=== PATIENT | male | born 1975 | race Two or more races ===

== ENCOUNTER → 2025-05-17 | Day surgery (SDC) | payer BC, OTHER ==
[2025-05-15 10:24] LABS: MEAN PLATELET VOLUME 7.3 FL (7.4-10.4); PRE OP HEMATOCRIT 42.9 % (42.0-52.0); PRE OP HEMOGLOBIN 14.7 g/dL (14.0-17.9); PRE OP PLATELET COUNT 245 X10'3 (140-440); PRE OP WHITE BLOOD COUNT 4.4 10'3 (4.8-10.8); RED CELL DISTRIBUTION WIDTH 13.5 % (11.5-14.5)
[2025-05-15 10:49] LABS: CREATININE 0.98 MG/DL (0.60-1.10); PRE OP ALT 24 U/L (30-65); PRE OP ANION GAP 8 (8-16); PRE OP AST 19 U/L (10-37); PRE OP BILIRUB, TOTAL 0.5 MG/DL (0.0-1.0); PRE OP GLUCOSE 98 MG/DL (70-104); PRE OP POTASSIUM 3.5 MMOL/L (3.4-5.1); PRE OP SODIUM 143 MMOL/L (135-145); TOTAL CARBON DIOXIDE 25.8 MMOL/L (24-32); eGFR 81 ML/MIN
--- NOTE | 2025-05-15 11:14 | ELECTROCARDIOGRAPH REPORT ---
[facility] Test Date: 2025-05-15 Test Time: 11:09:36 Pat Name: TWILA HERNANDEZ Department: [facility]-PRE-OP Patient ID: [facility]-[id number] Room: Gender: M C[employer]: : 1975 Requested By: GEORGE FINLEY Order Number: [id number] Reading MD: Dr. RUSSELL Singh Measurements Intervals [place] Rate: 59 P: 0 VT: 123 QRS: -58 QRSD: 100 T: 20 QT: 407 QTc: 404 Interpretive Statements Sinus bradycardia Left anterior fascicular block RSR' in V1 or V2, probably normal variant Electronically Signed On 05-16-2025 16:35:[address] RUSSELL Singh Please click the below link to view image of tracing.
[~2025-05-17] VITALS: Ht 170.2 cm; Wt 70.3 kg
[2025-05-17] VITALS (14 sets, daily range): BP systolic 114–134; BP diastolic 77–92; PULSE 53–62; RESP 10–16; TEMP 97.7; O2SAT 96–100
[~2025-05-17] MED LIST: ATOR20TA66 PO; BUPIVAcaine/PF 2.5 mg/ml (0.25%) 30ml vial ONE; HYDROmorphone/PF 0.2 MG/ML SYRINGE IV PRN; LIDOcaine 1% 30ml preserv. free vial ONE; LIDOcaine 2% (20mg/ml) 5ml vial ONE; acetaminophen 1,000mg/100ml IV 100 ML IV PRN; bacitracin 15gm ointment TP ONE; dexamethasone sod phosphate 4mg/ml inj. ONE; fentaNYL/PF 50MCG/1 ML 2ML syringe ONE; hydrALAZINE 20mg/ml inj. IV PRN; labetalol 20mg/4ml (5mg/ml) syringe IV PRN; midazolam 1 mg/ML 2ml injection ONE; morphine 4 MG/ML inj SYRINge IV PRN; ondansetron/PF 4mg/2ml inj IV PRN; ondansetron/PF 4mg/2ml inj ONE; propofol inj 20 ML IV ONE; ringers solution, lacted 1,000 ML IV SCH
[2025-05-17] MEDS: clindamycin-Cleocin 900mg/D5W 50 ML IV ONE (07:04)
--- NOTE | 2025-05-17 08:57 | HISTORY AND PHYSICAL ---
History & Physical Providers to CC ~ History of Present Illness Reason for Admit\Complaint: Umbilical hernia History of Present Illness Interval history and physical exam Patient here today for elective repair of an umbilical hernia He was seen in the office greater than 30 days ago He denies any change in his past medical history (please see previous history and physical exam for all pertinent details) He is scheduled for an umbilical hernia repair with mesh Allergies: Coded Allergies: Penicillins (Verified Allergy, Unknown, UNKNOWN, 05/16/25) Home Medications Home Medications Active Reported Atorvastatin Calcium 20 Mg Tablet 1 Tab PO DAILY Exam Vitals: Vital Signs Date Time Temp Pulse Resp B/P (MAP) Pulse Ox O2 Delivery O2 Flow Rate FiO2 05/17/25 07:17 53 15 100 05/17/25 07:14 Room Air General: 49-year-old male no acute distress Chest: Lungs clear to auscultation bilaterally Cardiovascular: Regular rate and rhythm without murmurs Abdomen: Abdomen soft and distended Umbilical hernia, reducible with no overlying skin changes Diagnostic Data Last Recorded Lab Results: 05/15/25 1018 05/15/25 1018 Problems: (1) Umbilical hernia Assessment & Plan: The risks, benefits, and alternatives to an umbilical hernia repair possible mesh were discussed with the patient. Risks include, but are not limited to, bleeding, infection, injury to intra-abdominal structures, hernia recurrence and chronic postoperative pain. Patient verbalized understanding and wishes to proceed with surgery. We will do so today as scheduled GEORGE FINLEY MD May 17, 2025 08:57
[2025-05-17] MEDS: BUPIVAcaine/PF 2.5 mg/ml (0.25%) 30ml vial IJ ONE (09:30)
[2025-05-17] MEDS: ondansetron/PF 4mg/2ml inj IV PRN (10:19)
--- NOTE | 2025-05-17 10:21 | OPERATIVE REPORT ---
Operative Report Providers to CC: JT FINLEY MD ~ Date of Procedure: May 17, 2025 Pre-Operative Diagnosis: Umbilical hernia Post-Operative Diagnosis Umbilical and ventral hernia totaling 3 cm Procedure Performed 3 cm ventral hernia repair with mesh Surgeon: Jt Finley MD FACS [employer] None Anesthesiologist: Sandra Marc Type of Anesthesia: General Findings: Both ventral and umbilical hernia spanning a distance of 3 cm requiring mesh repair Complications None Prosthetics\Implants used: 1.7 in diameter coated polypropylene mesh Estimated Blood Loss: Minimal Specimen Removed: Hernia sac and contents excised and discarded Description of Procedure: Patient was brought to the operating room and identified by the nursing staff and the attending physician. Patient was placed supine and general anesthesia was induced. The abdomen was prepped and draped in the standard sterile fashion. Preoperative antibiotics were given. There was a mass within the umbilical skin. Local anesthetic was infiltrated and a vertical incision was made over the superior margin of the umbilicus. This was deepened down through the subcutaneous tissues. Hernia sac associated with the umbilical stalk was encountered. This was opened and found to contain incarcerated preperitoneal fat. This was mobilized away from the umbilical stalk and excised at the level of the fascia. Just above this, a 2nd hernia sac was encountered. This had both preperitoneal fat as well as omentum. Hernia sac was opened, excised and discarded. The omentum was reduced and the preperitoneal fat was excised at the level of the fascia. There were two separate defects; one of the umbilicus and one above the umbilicus. The bridge of fascia between the two was opened, creating a common defect measuring about 3-4 cm in diameter. Local anesthetic was infiltrated into the surrounding fascial layer. A 1.7 in diameter coated polypropylene mesh was passed through the fascial defect and secured circumferentially with a trans fascial Ethibond sutures, knots buried beneath the fascia. Fascial layer was then closed over the mesh and the wound was closed in layers with absorbable suture. Dressings were applied. Patient was awakened and taken to the postanesthesia care unit in stable condition. Counts repoted as correct: Yes JT FINLEY MD May 17, 2025 10:21
[2025-05-17] MEDS: morphine 4 MG/ML inj SYRINge IV PRN (11:02)
[2025-05-17] MEDS: acetaminophen 1,000mg/100ml IV 100 ML IV PRN (11:03)
[2025-05-17] MEDS: HYDROcodone/acetaminophen 5mg/325mg tablet PO PRN (11:12)
[2025-05-17] MEDS: HYDROmorphone/PF 0.2 MG/ML SYRINGE IV PRN (11:14)
== END | disposition home or self-care (01) ==
LOC: PAS 06:47
PROVIDERS: ATTEND Surgery
DX: K42.0 Umbilical hernia with obstruction, without gangrene (principal); K43.6 Other and unspecified ventral hernia with obstruction, without gangrene; E78.5 Hyperlipidemia, unspecified; Z98.890 Other specified postprocedural states; Z79.899 Other long term (current) drug therapy
CPT/HCPCS: 36415; 49594; 80053; 82948; 85025; 93005; C1781; J0131; J1100; J1171; J2003; J2250; J2270; J2405; J2704; J3010; J3490; J7030; J7120; Z7506; Z7512; A4618; A6258; A7000